=== PATIENT | male | born 1990 | race Caucasian/White ===

== ENCOUNTER 2017-06-06 20:46 | Emergency (ER) | payer BC, OTHER ==
[2017-06-06 21:09] VITALS: BP 145/90; PULSE 118; TEMP 98.4; BMI 31.4
[2017-06-06] MEDS ORDERED: DIPHTH,PERTUSS(ACELL),TET 0.5 ML DISP.SYRIN IM ONE (22:28)
--- NOTE | 2017-06-06 22:32 | PDOC ---
History of Present Illness - General Chief Complaint: Laceration Stated Complaint: LACERATION Time Seen by Provider: 06/06/17 21:36 - History of Present Illness Initial Comments: 06/06/17 22:29 CHIEF COMPLAINT: laceration to L eyelid HISTORY OF PRESENT ILLNESS: 27 yo M playing baseball ran into "a fence and it had a metal thing poking out." Denies any other medical history. Does not know when he had a tetanus shot last. No recent travel or sick contacts. PAST MEDICAL HISTORY: Denies past medical history FAMILY HISTORY: Denies SOCIAL HISTORY: Lives at home with ____. Occupation: [employer]. Denies tobacco, alcohol, illicit drug use. SURGICAL HISTORY: Denies ALLERGIES: No known drug allergies REVIEW OF SYSTEMS General/Constitutional: Denies fever or chills. Denies weakness, weight change. HEENT: Denies change in vision. Denies ear pain or discharge. Denies sore throat. Cardiovascular: Denies chest pain or shortness of breath. Respiratory: Denies cough, wheezing, or hemoptysis. Gastrointestinal: Denies nausea, vomiting, diarrhea or constipation. Denies rectal bleeding. Genitourinary: Denies dysuria, frequency, or change in urination. Musculoskeletal: Denies joint or muscle swelling or pain. Denies neck or back pain. Skin and breasts: Denies rash or easy bruising. Neurologic: Denies headache, vertigo, loss of consciousness, or loss of sensation. PHYSICAL EXAM General Appearance: Well-appearing, appropriately dressed. No apparent distress , no intoxication. HEENT: one inch superficial linear lac just inferior of L eyebrow. EOMI, PERRLA , normal ENT inspection, normal voice, TMs normal, pharynx normal. No conjunctival pallor. No photophobia, scleral icterus. Neck: Supple. Trachea midline. No tenderness, rigidity, carotid bruit, stridor , lymphadenopathy, or thyromegaly. Respiratory/Chest: Lungs CTAB. No shortness of breath, chest tenderness, respiratory distress, accessory muscle use. No crackles, rales, rhonchi, stridor , wheezing, dullness Cardiovascular: RRR. S1, S2. No JVD, murmur, bradycardia, tachycardia. Vascular Pulses: Dorsalis-Pedis (R): 2+, Dorsalis-Pedis (L): 2+ Gastrointestinal/Abdominal: Normal bowel sounds. Abdomen soft, non-distended. No tenderness or rebound tenderness. No organomegaly, pulsatile mass, guarding , hernia, hepatomegaly, splenomegaly. Lymphatic: No adenopathy, tenderness. Musculoskeletal/Extremities: Normal inspection. FROM of all extremities, normal capillary refill. Pelvis Stable. No CVA tenderness. No tenderness to extremities, pedal edema, swelling, erythema or deformity. Integumentary: Appropriate color, dry, warm. No cyanosis, erythema, jaundice or rash Neurologic: non clinical advisor II-XII intact. Fully oriented, alert. Appropriate mood/affect. Motor strength 5/5. No appreciable EOM palsy, facial droop or sensory deficit. Past History - Past Medical History Allergies/Adverse Reactions: Allergies Allergy/AdvReac Type Severity Reaction Status Date / Time No Known Allergies Allergy Verified 07/03/15 20:23 Home Medications: Ambulatory Orders NK [No Known Home Medication] 06/06/17 COPD: No - Immunization History Immunization Up to Date: Yes - Suicide/Smoking/Psychosocial Hx Smoking History: Never smoked Have you smoked in the past 12 months: No Hx Alcohol Use: No Drug/Substance Use Hx: No Substance Use Type: None *Physical Exam - Vital Signs Last Vital Signs Temp Pulse Resp BP Pulse Ox 98.4 F 118 H 18 145/90 100 06/06/17 21:07 06/06/17 21:07 06/06/17 21:07 06/06/17 21:07 06/06/17 21:07 Procedures - Consent Consent obtained: Verbal - Laceration/Wound Repair Left Eye Wound Length: to 2.5 cm Wound Explored: clean Wound's Depth, Shape: superficial, linear Irrigated w/ Saline: Yes Betadine Prep: Yes Anesthesia: 1% Lidocaine w/ Epi Amount of Anesthetic (ccs): 1 Wound Repaired With: Sutures Suture Size/Type: 6:0 Number of Sutures: 3 Sterile Dressing Applied: Yes (bacitracin) Medical Decision Making - Medical Decision Making 06/06/17 22:34 27 yo M playing baseball ran into "a fence and it had a metal thing poking out. " tdap IM lac repair Advised patient of post lac repair instructions. Advised patient of signs and symptoms for return to ED. Patient verbalized understanding and agrees to plan. *DC/Admit/Observation/Transfer Diagnosis at time of Disposition: Laceration, eyelid, left - Discharge Dispostion Disposition: HOME Condition at time of disposition: Stable Admit: No - Referrals - Patient Instructions Printed Discharge Instructions: DI for Laceration Repair Additional Instructions: As discussed, please keep area of laceration clean and dry for the next 24-48 hours. Afterwards you may wash with mild soap and water. You may continue applying bacitracin on the wound to prevent infection for the next 2 days. Return to fast track or your primary care doctor for suture removal in FIVE days. If you experience any redness, swelling, streaking, warmth, to the site of the cut, or develop fever, nausea, vomiting, or diarrhea, please return to the ER. - Post Discharge Activity Forms/Work/School Notes: Back to Work
[2017-06-06] MEDS ORDERED: ACETAMINOPHEN 325 MG TABLET (FP) PO ONE (22:35)
[2017-06-06] MEDS ORDERED: ACETAMINOPHEN 325 MG TABLET (FP) ONE (22:36)
== END 2017-06-06 22:44 | disposition home or self-care (01) ==
LOC: JERFT 20:46
PROC: 08QPXZZ Repair Left Upper Eyelid, External Approach (ICD-10-PCS; principal; 2017-06-06)
PROC: 3E0234Z Introduction of Serum, Toxoid and Vaccine into Muscle, Percutaneous Approach (ICD-10-PCS; 2017-06-06)
DX: S01.112A Laceration without foreign body of left eyelid and periocular area, initial encounter (principal); W26.8XXA Contact with other sharp object(s), not elsewhere classified, initial encounter; Y93.64 Activity, baseball; Y92.320 Baseball field as the place of occurrence of the external cause; Y99.8 Other external cause status
CPT/HCPCS: 90715; 99281-25

== ENCOUNTER 2017-06-12 15:18 | Emergency (ER) | payer BC, OTHER ==
[2017-06-12 15:22] VITALS: BP 126/72; PULSE 82; TEMP 98.2; BMI 30.7
--- NOTE | 2017-06-12 15:22 | PDOC ---
Rapid Medical Evaluation Time Seen by Provider: 06/12/17 15:19 Medical Evaluation: Allergies Allergy/AdvReac Type Severity Reaction Status Date / Time No Known Allergies Allergy Verified 07/03/15 20:23 06/12/17 15:19 I have performed a brief in-person evaluation of this patient. The patient presents with a chief complaint of: suture removal Pertinent physical exam findings: sutures L forehead I have ordered the following: nothing The patient will proceed to the ED for further evaluation. Discharge Disposition - Diagnosis Visit for suture removal - Referrals - Patient Instructions - Post Discharge Activity
--- NOTE | 2017-06-12 16:27 | PDOC ---
Suture Removal/Wound Check HPI - History of Present Illness Chief Complaint: Suture/Staple Removal(Here) Stated Complaint: SUTURE/STAPLE REMOVAL Time Seen by Provider: 06/12/17 15:19 History Source: Yes: Patient Exam Limitations: Yes: No Limitations [facility] Treatment Type of procedure performed on last visit: Yes: Laceration Repair Past History - Past Medical History Allergies/Adverse Reactions: Allergies Allergy/AdvReac Type Severity Reaction Status Date / Time No Known Allergies Allergy Verified 06/12/17 15:21 Home Medications: Ambulatory Orders NK [No Known Home Medication] 06/06/17 COPD: No - Immunization History Immunization Up to Date: Yes - Suicide/Smoking/Psychosocial Hx Smoking History: Never smoked Have you smoked in the past 12 months: No Hx Alcohol Use: No Drug/Substance Use Hx: No Substance Use Type: None *DC/Admit/Observation/Transfer Diagnosis at time of Disposition: Visit for suture removal - Discharge Dispostion Disposition: HOME Condition at time of disposition: Stable Admit: No - Referrals - Patient Instructions Printed Discharge Instructions: DI for Suture Removal Additional Instructions: Rest, allow completion of healing May continue using bacitracin ointment until scabs are completely resolved Keep wound covered and out of the sun for at least one year as scar tissue will nut picker and absorbable more sunlight causing a darker discoloration May use vitamin E, aloe, or other oils recommended for skin and scar healing - Post Discharge Activity
== END 2017-06-12 16:32 | disposition home or self-care (01) ==
LOC: JERFT 15:18
DX: Z48.02 Encounter for removal of sutures (principal)
CPT/HCPCS: 99281-25

== ENCOUNTER 2018-01-31 22:20 | Emergency (ER) | payer OTHER, BC ==
[2018-01-31 22:39] VITALS: BP 137/82; PULSE 100; TEMP 98.3; BMI 33.0
[2018-01-31] MEDS ORDERED: IBUPROFEN 600 MG TABLET (FP) PO ONE ×2 (22:54→23:03)
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
== END 2018-01-31 23:13 | disposition home or self-care (01) ==
LOC: FER 22:20
DX: S16.1XXA Strain of muscle, fascia and tendon at neck level, initial encounter (principal); V43.52XA Car driver injured in collision with other type car in traffic accident, initial encounter; Y93.89 Activity, other specified; Y92.410 Unspecified street and highway as the place of occurrence of the external cause
CPT/HCPCS: 99281-25